=== PATIENT | male | born 1965 | race Caucasian/White ===

== ENCOUNTER 2020-10-28 09:52 | Observation (INO) ==
--- NOTE | 2020-10-05 10:12 | PAT Medication Instructions ---
Medication Instructions Date of Service October 05, 2020 Home Medications aspirin [Aspirin Low-Strength] 81 mg PO HS metoprolol succinate 50 mg PO HS tramadol 200 mg PO BID PRN ASK your prescriber and surgeon aspirin [Aspirin Low-Strength] 81 mg PO HS Take morning of surgery With a small sip of water, OTHERWISE NOTHING TO EAT OR DRINK AFTER MIDNIGHT: tramadol 200 mg PO BID PRN (okay to take up to 4 hours prior to surgery if needed) Take evening before surgery metoprolol succinate 50 mg PO HS tramadol 200 mg PO BID PRN (if needed) Other Notes If you have any questions please call us at [phone] or [phone] or [phone] or [phone]
--- NOTE | 2020-10-07 12:10 | Anesthesiology Consultation ---
Date of Service October 07, 2020 Assessment & Plan (1) Encounter for pre-operative examination: - Per assessment on 10/07: Travel screen- Lives in [facility]. Travel to [facility] for doctor appts. Uses PPE. No known COVID-19 positive contacts or current COVID-19 related symptoms. Surgeon arranging preop COVID testing (scheduled 10/21; [facility]). Awaiting results. - ASA instructions: per surgeon/prescriber Chart Review Chart Review: Acceptable Risk for Surgery (pending surgeon-ordered PCP clearance) and Patient seen in Pre Admission Testing Teaching & Discussion Pre-Anesthesia Teaching/Discussion Notes: Instructed NPO after midnight before surgery,except medications with 15 cc of water. Medication instructions provided according to the PAT guidelines. History Surgery Operation Date: 10/28/20 07:15 Proposed Procedures p L3-L4 Decompression Fusion, L4-S1 Hardware Removal, Spinal Cord Monitoring - Raulito Brown, Height/Weight Height: 5 ft 6 in Weight: 83 kg Allergies Allergy/AdvReac Type Severity Reaction Status Date / Time No Known Drug Allergies Allergy Unknown NKDA Verified 09/22/20 15:31 Yellow [employer] Allergy Unknown Rash, Uncoded 10/07/20 09:31 hives at site Medications Home Medications Medication Instructions Recorded Confirmed Last Taken aspirin [Aspirin Low-Strength] 81 mg PO HS 09/22/20 09/22/20 Unknown metoprolol succinate 50 mg PO HS 09/22/20 09/22/20 Unknown tramadol 200 mg PO BID PRN 09/22/20 09/22/20 Unknown Past Medical History Medical History Chronic back pain Degenerative disc disease GERD (gastroesophageal reflux disease) hx Hypertension Osteoarthritis Sleep apnea CPAP Spinal stenosis Transient ischemic attack (TIA) Possible TIA 12/10/19 (Arnaldo Billy), started on Metoprolol and ASA Exercise / Class Metabolic Activity II 4-5 Yardwork/Stairs/Walk up hill Past Family History Family History Father FHx: colon cancer Other No family history of adverse response to anesthesia Past Surgical History Surgical History History of carpal tunnel release right History of colonoscopy History of esophagogastroduodenoscopy (EGD) History of Oral fundoplication History of repair of rotator cuff right Hx of left inguinal hernia repair S/P epidural steroid injection S/P lumbar fusion Past Anesthesia History No Hx of Anesthesia Complications and No Family Hx of Anesthesia Complications History of PONV No Hx of PONV and No Hx of Motion Sickness Social History Smoking Status: Never smoker tobacco type: smokeless tobacco Do You Dip or Chew Tobacco: Yes (1 can/1.5 day (advised none AM DOS)) Hx Alcohol Use: No Hx Substance Use: No substance use type: does not use Review of Systems Patient denies chest pain, shortness of breath, dyspnea on exertion, fever, chills, cough, wheezing, palpitations. Physical Exam Vital Signs VITALS BP 132/83 P 70 TEMP 98.4 SP02 97%RA RESP 16 PHYSICAL Mildly decreased cervical extension Full TMJ range of motion. TMD 3.5 finger breaths Mallampati Score 2 Dentition: missing sides/molars Lungs: clear throughout to auscultation Cardiac: regular rate and rhythm, no murmurs noted Spine: normal Carotid arteries: negative bruit Extremities: no edema Trimmed cardona Testing Laboratory Results 10/07/20 12:27 10/07/20 12:27 PT 9.6 Seconds (9.0-12.0) 10/07/20 12:27 INR 0.9 (0.9-1.1) 10/07/20 12:27 APTT 26.5 Seconds (21.0-31.0) 10/07/20 12:27 Urine Color Yellow 10/07/20 12:27 Urine Appearance Clear (Clear) 10/07/20 12:27 Urine pH 7.0 (4.5-7.5) 10/07/20 12:27 Ur Specific [place] 1.021 (1.000-1.030) 10/07/20 12:27 Urine Protein Negative (Negative) 10/07/20 12:27 Urine Glucose (UA) Negative (Negative) 10/07/20 12:27 Urine Ketones Negative (Negative) 10/07/20 12:27 Urine Nitrite Negative (Negative) 10/07/20 12:27 Ur Leukocyte Esterase Negative (Negative) 10/07/20 12:27 Blood Type A Positive 10/07/20 12:27 Antibody Screen NEGATIVE 10/07/20 12:27 Electrocardiogram Date: 12/10/19 SB at 59bpm. NS TWA. Chest X-Ray Date: 10/07/20 FINDINGS: Lung volumes are normal. Lungs are clear. There is no pneumothorax or pleural effusion. Cardiac size is normal. Mediastinal contours are normal. There is no evidence for pulmonary edema. A small to moderate hiatal hernia is present. Postoperative findings within the right shoulder incidentally noted. IMPRESSION: No acute cardiopulmonary findings. Hiatal hernia. Echocardiogram Date: 01/15/20 LVEF 62%. No regional wall motion abnormality. Mild MR. Mildly enlarged aortic root (3.8 cm). No evidence of intra cardiac shunt. Other Testing MRI Brain: 01/01/20: No evidence of acute intracranial pathology. Head CT: 12/10/19: No acute intracranial pathology
[2020-10-07 12:51] LABS: Basophils # (auto) 0.01 K/uL (0-0.2); Basophils % (auto) 0.2 %; Eosinophils % (auto) 1.7 %; Hematocrit (blood only) 39.9 % (42-52); Hemoglobin 13.8 g/dL (14.0-18.0); Immature Granulocytes # (auto) 0.01 K/uL (0.00-0.02); Immature Granulocytes % (auto) 0.2 %; Lymphocytes % (auto) 29.8 %; Mean Corpuscular Hemoglobin 31.5 pg (25-34); Mean Corpuscular Hgb Conc 34.6 g/dL (32-36); Mean Corpuscular Volume 91.1 fL (80-100); Mean Platelet Volume 9.2 fL (7.4-10.4); Monocytes # (auto) 0.72 K/uL (0.11-0.59); Monocytes % (auto) 11.9 %; Neutrophils % (auto) 56.2 %; Platelet Count 289 K/uL (130-400); RDW Coefficient of Variation 12.6 % (11.5-14.5); RDW Standard Deviation 42.8 fL (36.4-46.3); Red Blood Count 4.38 M/uL (4.7-6.1); White Blood Count 6.04 K/uL (4.8-10.8)
[2020-10-07 12:52] LABS: Appearance Urine Clear (Clear); Bilirubin Urine Negative (Negative); Blood Urine Negative (Negative); Color Urine Yellow; Glucose Urine UA Negative (Negative); Ketones Urine Negative (Negative); Leukocyte Esterase Urine Negative (Negative); Nitrite Urine Negative (Negative); Protein Urine Negative (Negative); Specific Gravity Urine 1.021 (1.000-1.030); Urobilinogen Urine Negative (Negative)
--- NOTE | 2020-10-07 13:07 | XRay Report ---
XR chest Pre-admission PA/Lat CLINICAL HISTORY: Preoperative evaluation. COMPARISON STUDY: Chest radiograph October 11, 2015. FINDINGS: Lung volumes are normal. Lungs are clear. There is no pneumothorax or pleural effusion. Car diac size is normal. Mediastinal contours are normal. There is no evidence for pulmonary edema. A sma ll to moderate hiatal hernia is present. Postoperative findings within the right shoulder incidentall y noted. IMPRESSION: 1. No acute cardiopulmonary findings. 2. Hiatal hernia. ACT 112: Negative or not required by law. Electronically signed by: Jairo Moy M.D. 10/07/2020 1:06 PM
[2020-10-07 13:11] LABS: INR 0.9 (0.9-1.1); Partial Thromboplastin Time 26.5 Seconds (21.0-31.0); Prothrombin Time 9.6 Seconds (9.0-12.0)
[2020-10-07 13:50] LABS: BUN Creatinine Ratio 12.4 (10-20); Creatinine Clr Calc Pharmacy 65.7 ml/min; Est GFR (African American) 71.7; Est GFR (Non-African American) 61.9; Potassium 4.2 mmol/L (3.5-5.1)
[~2020-10-28 09:52] MED LIST: ACETAMINOPHEN 500 MG TAB PO SCH; CeleBREX 200 MG CAP PO SCH; GABAPENTIN 900 MG DOSE PO SCH; LR 15ML/HR IV SCH; ceFAZolin 2000MG 2,000 MG/15 ML SYR IV SCH
[2020-10-28] MEDS ORDERED: MIDAZOLAM HCL 1 MG/ML 2ML VIAL ONE (10:17)
[2020-10-28] MEDS ORDERED: fentaNYL citrate 100 MCG/2 ML VIAL ONE (10:17)
--- NOTE | 2020-10-28 11:46 | History & Physical Bridge Note ---
Date of Service October 28, 2020 History & Physical Bridge Note I have examined the patient, reviewed the History & Physical and in the interval since the performance of the History & Physical I have noted the following changes of clinical significance: no changes noted
--- NOTE | 2020-10-28 11:47 | History & Physical Report ---
Date of Service October 28, 2020 Assessment & Plan (1) Neurogenic claudication due to lumbar spinal stenosis: Admission and Anticipated Discharge Date Admission Date: L3-L4 decompression fusion, L4-S1 hardware removal History of Present Illness Chief Complaint: Back and leg pain Primary Care Provider: NO PCP This is a 55-year-old male who presents with chronic persistent back and leg pain. Failing course of nonoperative care is here for surgical intervention. Allergies Allergy/AdvReac Type Severity Reaction Status Date / Time No Known Drug Allergies Allergy Unknown NKDA Verified 10/28/20 10:12 Yellow [employer] Allergy Unknown Rash, Uncoded 10/28/20 10:12 hives at site Home Medications Medication Instructions Recorded Confirmed Type aspirin [Aspirin Low-Strength] 81 mg PO HS 09/22/20 10/28/20 History metoprolol succinate 50 mg PO HS 09/22/20 10/28/20 History tramadol 200 mg PO BID PRN 09/22/20 10/28/20 History Past Med/Surg History Medical History Chronic back pain Degenerative disc disease GERD (gastroesophageal reflux disease) hx Hypertension Osteoarthritis Sleep apnea CPAP Spinal stenosis Transient ischemic attack (TIA) Possible TIA 12/10/19 (STEPHENIE Billy), started on Metoprolol and ASA Surgical History History of carpal tunnel release right History of colonoscopy History of esophagogastroduodenoscopy (EGD) History of Oral fundoplication History of repair of rotator cuff right Hx of left inguinal hernia repair S/P epidural steroid injection S/P lumbar fusion Family History Father FHx: colon cancer Other No family history of adverse response to anesthesia Social History Smoking Status: Never smoker Second Hand Exposure: Yes; Do You Dip or Chew Tobacco: Yes (1 can/1.5 day (advised none AM DOS)); Tobacco Cessation Education Requested by Patient: No Hx Alcohol Use: No Hx Substance Use: No Preferred Language: Polish Communication Ability: Effective Processing Operator Required: No Beliefs That Will Affect Care: None Current Living Situation: Spouse Other Information That Helps Us Care for You: No Feels Safe at Home: Yes Safety Concerns: Feels Safe At This Time Assistive Devices: CPAP and Glasses Physical Exam Physical Exam: Patient is alert and oriented Heart regular in rhythm Lungs clear to auscultation Results & Data ([facility]) Vital Signs (Past 12 Hours) Vital Signs Temp Pulse Resp BP Pulse Ox 10/28/20 10:15 36.5 C 66 20 136/88 99
[2020-10-28] MEDS ORDERED: HYDROmorphone INJ 2 MG/ML SYR/VIAL IV PRN (11:51)
[2020-10-28] MEDS ORDERED: ONDANSETRON INJ 2 MG/ML 2 ML VIAL IV PRN ×2 (11:51→15:08)
[2020-10-28] MEDS ORDERED: METOCLOPRAMIDE HCL INJ 5 MG/ML 2 ML VIAL IV PRN ×2 (11:51→15:08)
[2020-10-28] MEDS ORDERED: PROMETHAZINE HCL 12.5 MG in SODIUM CHLORIDE 0.9% 50 ML IV PRN ×2 (11:51→15:08)
[2020-10-28] MEDS ORDERED: ATROPINE SULFATE 0.1 MG/ML 10ML SYR IV PRN (11:51)
[2020-10-28] MEDS ORDERED: fentaNYL citrate 100 MCG/2 ML VIAL IV PRN (11:51)
[2020-10-28] MEDS ORDERED: ePHEDrine sulfate 50 MG/ML AMP IV PRN (11:51)
[2020-10-28] MEDS ORDERED: BACITRACIN INJ 50,000 UNIT VIAL ONE (11:53)
[2020-10-28] MEDS ORDERED: BUPIVACAINE/EPINEPHRINE 0.5% MPF 1:200,000 30 ML VIAL ONE (11:53)
[2020-10-28] MEDS ORDERED: LIDOCAINE 2% 2 ML VIAL/AMP(20MG/ML) INFIL ONE (11:54)
[2020-10-28] MEDS ORDERED: ONDANSETRON INJ 2 MG/ML 2 ML VIAL ONE (11:54)
[2020-10-28] MEDS ORDERED: PROPOFOL IV EMULSION 10 MG/ML 20 ML VIAL IV ONE (11:54)
[2020-10-28] MEDS ORDERED: DEXAMETHASONE SOD INJ 4 MG/ML VIAL ONE ×2 (11:54)
[2020-10-28] MEDS ORDERED: ROCURONIUM BROMIDE 10 MG/ML 5 ML VIAL IV ONE (11:54)
[2020-10-28] MEDS ORDERED: GLYCOPYRROLATE 0.2 MG/ML VIAL ONE (12:40)
[2020-10-28] MEDS ORDERED: NEOSTIGMINE METHYLSULFATE 1 MG/ML 10ML VIAL ONE (12:40)
[2020-10-28] MEDS ORDERED: FLOSEAL HEMOSTATIC MATRIX 10ML TOP ONE (12:44)
[2020-10-28] MEDS ORDERED: PHENYLEPHRINE 100MCG/ML 5ML SYR ONE (13:28)
[2020-10-28] MEDS ORDERED: ePHEDrine sulfate 50 MG/ML SYR ONE (13:28)
--- NOTE | 2020-10-28 14:00 | Operative Report ---
Post Operative Report Pre & Post Diagnosis Operation Date: 10/28/20 11:35 Pre-Op Diagnosis: Lumbar spinal stenosis with neurogenic claudication Post-Op Diagnosis: Same I identified the patient and participated in the time-out.: Yes Procedure Operation Date: 10/28/20 11:35 Actual Procedures #1 removal of lumbar posterior segmental instrumentation L4-5 L5-S1. #2 exploration of fusion L4-5 L5-S1. 3 lumbar decompression with bilateral medial facetectomies and foraminotomies L2-3, L3-4. #4 posterior spinal fusion L3-4. #5 placement posterior instrumentation L3-4 and L4-5. #6 interbody fusion L3-4. #7 placement peek cage 11 x 26 mm at L3-4. #8 placement locally harvested morselized autograft in the posterior lateral gutters. #9 placement of I factor in the interbody cages posterior lateral gutters. Surgeon Raulito Brown, Advanced Clinical Specialist Rosmery Rankin Estimated Blood Loss 250 Findings Consistent with Post-Op Diagnosis Specimens None Indications This is a 55-year-old male who presents above-mentioned diagnosis after failing course of nonoperative care is here for the above meds procedure. Description of Procedure Patient met with identified informed consent obtained. Patient was then taken to the operative suite underwent a patient placed in a prone position Niranjan table top Albaro frame. All bony prominences well-padded eyes inspected to ensure no external pressure placed upon the. This point the lumbar spine was prepped and draped in a sterile fashion. Sharp dissection with the assistance of Bovie cautery was performed down to and exposing the lamina and transverse processes of L3 and instrumentation at L4 and L5 and S1 levels bilaterally. I then proceeded move the hardware bilaterally explore the fusion mass noting it to be mature and intact. And then performed a complete laminectomy of L3 partial laminectomy of L2 including bilateral medial facetectomies and foraminotomies addressing severe spinal stenosis. Pedicle screw was then placed in L3-L4-L5 bilaterally with assistance of fluoroscopy and the purposes anupam placed. By way of a transforaminal portion right complete discectomy L3-4 was performed endplates curetted to subcortical being bone and a 11 x 26 mm peek cage filled with I factor tapped in position. The rods were then compressed locked into final position bilaterally. The transverse processes of L3 and L4 were burred to subcortical bleeding bone. I factor and local autograft placed in the posterior gutters. 15 round CASS drain inserted. The incision was then closed with 1 Vicryl the fascia 2-0 Vicryl subcutaneously and 4 Monocryl for final skin closure. Steri-Strip sterile dressings placed. Patient will continue PACU stable condition. Please note spinal cord monitoring was utilized that the procedure no changes noted. Lastly Rosmery Rankin was present at the entire procedure involved in patient positioning complex portions of the surgery and final skin closure. I attest to the content of the Intraoperative Record and any orders documented therein. Any exceptions are noted below.
--- NOTE | 2020-10-28 14:12 | Fluoroscopy Report ---
FL lumbar spine 2-3V CLINICAL HISTORY: Hardware removal. L3-L5 fusion. COMPARISON STUDY: Lumbar spine fluoroscopic images October 19, 2015. FLUOROSCOPY TIME: 12.9 seconds. FLUOROSCOPIC IMAGES: 2 FINDINGS: Previous L5-S1 spacer is noted. Previous hardware has been removed. Interval L3-L4 discecto my and interbody spacer placement as noted. Posterior decompression is noted with bilateral pedicle s crews at the L3, L4 and L5 levels with interconnecting rods. Hardware is intact. IMPRESSION: Interval L3-L4 discectomy, posterior decompression and L3-L5 bilateral pedicle screw fus ion. ACT 112: Negative or not required by law. Electronically signed by: Jairo Moy M.D. 10/28/2020 2:10 PM
--- NOTE | 2020-10-28 14:40 | Anesthesiology Progress Note ---
Date of Service October 28, 2020 Anesthesia Post Procedure Vital Signs Vital Signs: Temp Pulse Pulse Resp BP BP Pulse Ox 10/28/20 14:35 72 16 123/82 99 10/28/20 14:25 74 16 135/91 98 10/28/20 14:16 97.5 F L 79 12 120/66 96 10/28/20 10:15 97.7 F 66 20 136/88 99 Transfer of Care Handoff Completed per policy Notes Mental Status: alert / awake / arousable and participated in evaluation Patient Amnestic to Procedure: Yes Nausea / Vomiting: adequately controlled Pain: adequately controlled Airway Patency, RR, SpO2: stable & adequate BP & HR: stable & adequate Hydration State: stable & adequate Anesthetic Complications: no major complications apparent and Pt Satisfied with anesthetic care
[2020-10-28] MEDS ORDERED: bisacodyL 10 MG SUPP PR PRN (15:08)
[2020-10-28] MEDS ORDERED: DO NOT ADMINISTER FLU VACCINE PRN (15:08)
[2020-10-28] MEDS ORDERED: hydrOXYzine HCl 25 MG TAB PO PRN (15:08)
[2020-10-28] MEDS ORDERED: traMADol HCL 50 MG TABLET PO PRN (15:08)
[2020-10-28] MEDS ORDERED: FAMOTIDINE 20 MG TAB PO PRN (15:08)
[2020-10-28] MEDS ORDERED: ACETAMINOPHEN 1,000 MG/100 ML VIAL IV PRN (15:08)
[2020-10-28] MEDS ORDERED: ALUMINUM/MAGNESIUM SUSP 30 ML UDC PO PRN (15:08)
[2020-10-28] MEDS ORDERED: diphenhydrAMINE Capsule 25 MG CAP PO PRN (15:08)
[2020-10-28] MEDS ORDERED: MAGNESIUM HYDROXIDE SUSP 30 ML UDC PO PRN (15:08)
[2020-10-28] MEDS ORDERED: NALOXONE HCL 0.4 MG/1 ML VIAL/CARP IV PRN (15:08)
[2020-10-28] MEDS ORDERED: SOD PHOSPHATE/SOD BIPHOSPHATE ENEMA 132 ML BTL PR PRN (15:08)
[2020-10-28] MEDS ORDERED: ONDANSETRON 4 MG OD TAB PO PRN (15:08)
[2020-10-28] MEDS ORDERED: LORazepam 0.5 MG TAB PO PRN (15:08)
[2020-10-28] MEDS ORDERED: HYDROmorphone INJ 0.5 MG/0.5 ML SYR IV PRN (15:08)
[2020-10-28] MEDS ORDERED: DO NOT ADMINISTER PNEUMOCOCCAL VACCINE PRN (15:08)
[2020-10-28] MEDS ORDERED: LORazepam 0.5 MG/1 ML VIAL IV PRN (15:08)
[2020-10-28] MEDS ORDERED: HYDROmorphone INJ 1 MG/ML SYRINGE IV PRN (15:08)
[2020-10-28] MEDS ORDERED: ACETAMINOPHEN 500 MG TAB PO PRN (15:08)
[2020-10-28] MEDS: oxyCODONE HCL IR 5 MG TAB (IMMEDIATE RELEASE) PO PRN (15:32)
[2020-10-28] MEDS: LACTATED RINGER'S 1,000 ML IV SCH (15:32)
[2020-10-28] MEDS: KETOROLAC 30 MG/ML VIAL IV SCH ×2 (16:25→22:21)
[2020-10-28] MEDS: DOCUSATE SODIUM/SENNA 50/8.6MG TAB PO SCH (20:26)
[2020-10-28] MEDS: ceFAZolin 2000MG 2,000 MG/15 ML SYR IV SCH (20:26)
[2020-10-28] MEDS: METOPROLOL SUCC 50MG EXT REL TAB PO SCH (20:27)
[2020-10-28] MEDS: ASPIRIN 81 MG ECTAB PO SCH (20:27)
[2020-10-29] MEDS: POLYETHYLENE (MIRALAX) 17 GM PACK PO SCH ×3 (05:06→17:02)
[2020-10-29] MEDS: KETOROLAC 30 MG/ML VIAL IV SCH ×2 (05:06→09:46)
[2020-10-29] MEDS: oxyCODONE HCL IR 5 MG TAB (IMMEDIATE RELEASE) PO PRN ×3 (05:09→17:00)
[2020-10-29] MEDS: LACTATED RINGER'S 1,000 ML IV SCH (05:12)
[2020-10-29] MEDS: ceFAZolin 2000MG 2,000 MG/15 ML SYR IV SCH (05:12)
[2020-10-29 06:33] LABS: Hematocrit (blood only) 33.7 % (42-52); Hemoglobin 11.8 g/dL (14.0-18.0); Immature Granulocytes # (auto) 0.02 K/uL (0.00-0.02); Immature Granulocytes % (auto) 0.2 %; Lymphocytes # (auto) 0.75 K/uL (1.2-3.4); Lymphocytes % (auto) 6.4 %; Mean Corpuscular Hemoglobin 31.5 pg (25-34); Mean Corpuscular Volume 89.9 fL (80-100); Mean Platelet Volume 8.8 fL (7.4-10.4); Monocytes # (auto) 0.62 K/uL (0.11-0.59); Monocytes % (auto) 5.3 %; Neutrophils # (auto) 10.26 K/uL (1.4-6.5); Neutrophils % (auto) 88.1 %; Platelet Count 260 K/uL (130-400); RDW Coefficient of Variation 12.6 % (11.5-14.5); RDW Standard Deviation 41.4 fL (36.4-46.3); Red Blood Count 3.75 M/uL (4.7-6.1); White Blood Count 11.65 K/uL (4.8-10.8)
[2020-10-29 07:05] LABS: BUN Creatinine Ratio 13.1 (10-20); Calcium 8.4 mg/dl (8.5-10.1); Creatinine Clr Calc Pharmacy 62.6 ml/min; Est GFR (African American) 68.5; Est GFR (Non-African American) 59.1; Potassium 4.3 mmol/L (3.5-5.1)
--- NOTE | 2020-10-29 08:42 | Orthopedic Progress Note ---
Date of Service October 29, 2020 Assessment & Plan (1) Neurogenic claudication due to lumbar spinal stenosis: Patient is doing well postop day 1. Regard to get him up and walking with therapy today. We will continue GI DVT prophylaxis as well as pain control. He is likely to be discharged tomorrow. Admission and Anticipated Discharge Date Admission Date: October 28, 2020 Subjective Patient was seen bedside postop day #1. He states he feels pretty good at this point. He really is not having too much in way of leg pain. The back is sore but the pain medication is working. He has not had any nausea. He has gotten up and walked. He denies any other numbness, tingling, or paresthesias. Physical Exam Physical Exam: On exam he is lying in bed he is in no apparent distress. His abdomen soft nontender his calves are supple nontender. CASS drain is in place and is holding suction dressing is clean dry and intact. Results & Data ([facility]) Vital Signs (Past 12 Hours) Vital Signs Temp Pulse Resp BP Pulse Ox 10/29/20 07:18 36.4 C L 68 16 119/74 98 10/29/20 02:22 36.8 C 67 16 133/73 94 10/28/20 23:02 36.6 C 82 16 94/59 L 96
[2020-10-29] MEDS: dexAMETHasone 8 MG in SYRINGE 0 ML IV SCH (09:46)
[2020-10-29] MEDS: METOPROLOL SUCC 50MG EXT REL TAB PO SCH (20:43)
[2020-10-29] MEDS: ASPIRIN 81 MG ECTAB PO SCH (20:43)
[2020-10-29] MEDS: DOCUSATE SODIUM/SENNA 50/8.6MG TAB PO SCH (20:44)
[2020-10-30] MEDS: POLYETHYLENE (MIRALAX) 17 GM PACK PO SCH ×2 (00:43→05:29)
[2020-10-30] MEDS: oxyCODONE HCL IR 5 MG TAB (IMMEDIATE RELEASE) PO PRN (03:59)
[2020-10-30] MEDS: dexAMETHasone 8 MG in SYRINGE 0 ML IV SCH (09:03)
--- NOTE | 2020-10-30 10:30 | Discharge Summary ---
Date of Service October 30, 2020 Admission HPI Per Admitting Provider This is a 55-year-old male who presents with chronic persistent back and leg pain. Failing course of nonoperative care is here for surgical intervention. Principal Diagnosis Lumbar spinal stenosis with neurogenic claudication Discharge Data Allergies Allergy/AdvReac Type Severity Reaction Status Date / Time No Known Drug Allergies Allergy Unknown NKDA Verified 10/28/20 10:12 Yellow [employer] Allergy Unknown Rash, Uncoded 10/28/20 10:12 hives at site Procedures Performed Operation Date: 10/28/20 11:35 Actual Procedures p L3-L4 Decompression Fusion, Spinal Cord Monitoring(Not Applicable) - Raulito Brown DO s L4-S1 Hardware Removal(Not Applicable) - Rauliot Brown DO Ordered Studies 10/28/20 11:35 FL fluoroscopy <1hr Routine FL lumbar spine 2-3V Routine Hospital Course (1) Neurogenic claudication due to lumbar spinal stenosis: Patient with lumbar decompression fusion tolerated well taken to orthopedic for postoperative. Postop day 1 is up and ambulating. Postop day #2 CASS drain decreasing well excellent strength testing. Pain well controlled. Subsequent discharge home. Discharge orders instructions from the chart for further review. Total Time Total Time Spent Total Time Spent (In Minutes): 20 minutes Discharge Plan Discharge Items Patient Disposition: Home - Self-Care Reason For Visit: Thoracic Thoracolumbar Intervertebral Disc Disorde Discharge Diagnosis: Lumbar spinal stenosis with neurogenic claudication Activity: As commented below Non-emergency contact: Primary Care Provider Call non-emergency contact if: you have any medication questions Follow-up/Referrals: PCP,NO [Primary Care Provider] - Diet: Regular Addtl Attending Provider Instructions: ACTIVITY RECOMMENDATIONS: SELF CARE INSTRUCTIONS AFTER THORACIC/LUMBAR FUSIONS 1. You may walk to your tolerance. It is good exercise for your legs and back. Expect some back and intermittent leg aches and pains. 2. You may perform "counter-top" level activities (make a sandwich, chavo with a project, etc.). 3. No bending or lifting of more than 10 pounds or back twisting of any nature (roll like a log when turning in bed). 4. You may ride in a car for 20-30 minutes at a time. No driving until after your first visit with your doctor. 5. Frequent changes of position and restricting sitting to 30 minutes at a time will help limit the amount of back spasms and stiffness you may experience. 6. You may discontinue the use of ambulatory aids (cane, crutches, etc.) once your strength and confidence allow. 7. You may manufacturing engineering technologist the shower and let water strike your incision when you arrive home at least once daily. Do not take a tub bath, sit in a hot tub or go into a swimming pool until after your first recheck in the office. SPECIAL CARE INSTRUCTIONS: VERY IMPORTANT TO READ AND REVIEW A. Your surgical incision has been closed with a cosmetic suture under the skin that will dissolve in about 6 weeks. In 14 days, you can use a pair of clean scissors and cut the suture that is left outside of the skin at the ends of your incision. 1. The small skin tapes can be removed 7 days after surgery if they have not fallen off by that point. 2. You may keep the wound open to air as much as possible to promote healing after post-op day number 5 unless told otherwise by your doctor. 3. If you think the wound looks like it is becoming infected (redness or worsening drainage) and/or you are experiencing fever, chill or worsening back pain and muscle spasms, contact the office so that we may evaluate you as soon as possible. B. Complications are uncommon, but please contact us if you have any signs or symptoms of: 1. wound infection (fever higher than 102.5 degrees F, redness, separation of wound, drainage, or increasing pain from the incision) 2. blood clots in legs (pain, swelling, redness and warmth in legs) 3. urinary tract infection (fever higher than 102.5 degrees F, burning upon urination or increased frequency of urination) 4. nerve problems (inability to walk on your toes or heels, numbness, loss of bowel or bladder control) 5. any other symptoms that concern you C. Please call the office at if you have any concerns or questions about your operation or recovery. D. No smoking! Smoking drastically decreases the chance of a solid fusion. E. Do not take any anti-inflammatory medications (Indocin, Advil, Motrin, Aspirin, Naprosyn, etc.) as these may inhibit the chance of a solid fusion. Tylenol is okay to take for pain. MANAGING PAIN AFTER SPINAL SURGERY 1. Narcotic medication is intended for short-term use and will be provided for surgical pain. Surgical pain usually lasts for a period of 4-6 weeks. Narcotic medication includes Percocet, Vicodin, Darvocet, Tylenol #3 or Lortab. 2. Longer-term pain is more appropriately treated with non-narcotic medication such as Tylenol ES. 3. Muscle spasm is not appropriately treated with narcotics. Muscle relaxers such as Soma, Flexeril or Skelaxin can be used along with Tylenol ES. 4. Remember that we all live with some "aches and pains". This is not unusual or uncommon after an injury or as we get older. a. Back pain is expected and may include muscle spasms for 4 to 6 weeks after surgery. The pain should gradually improve. If the pain worsens for no apparent reason, please contact the office. b. Intermittent leg pain may also be experienced and should not be concerned about unless it worsens for no apparent reason. If so, please contact the office. 5. We will provide appropriate medication within the normal guidelines of their prescribed use. We will also be very cautious and aware of potential abuse and extended duration of patients' medication needs. a. Pain medications are for your comfort and to assist with sleep and rest so that the tissue can heal. They are not provided in order to return to normal activity and should not be used through the day. To do so or worsening pain at night can result from ongoing tissue damage and development of tolerance to the prescribed medicine. 6. Please allow 2-3 days to process refills. Prescriptions will not be mailed but must be picked up at the office. FOLLOW UP VISIT: Keep your scheduled follow-up appointment. Any questions, please call the office at . Pending Studies at Discharge: No Stand-Alone Forms: [employer], Smoking Cessation Medications and DC Order Prescriptions: New oxycodone 5 mg tablet 5 mg PO Q6H PRN (Reason: pain, severe) Qty: 30 RF: 0 tramadol 50 mg tablet 50 mg PO Q6H PRN (Reason: pain, moderate) Qty: 30 RF: 0 Continued metoprolol succinate 50 mg Tablet Extended Release 24 Hr 50 mg PO HS RF: 0 aspirin 81 mg Tablet,Delayed Release (Dr/Ec) 81 mg PO HS RF: 0 tramadol 50 mg Tablet 200 mg PO BID PRN (Reason: Pain) RF: 0 Discharge Orders: Discharge Order (Routine); Ordered 10/30/20 Ordered By: Raulito Brown Admission Data Admit Date/Time: 10/28/20 14:29 Attending Provider: Raulito Brown Admit Provider: Raulito Brown Primary Care Provider: PCP,SADIQ
== END 2020-10-30 13:01 | disposition home or self-care (01) ==
LOC: 3E 09:52 → ASU 09:52